=== PATIENT | male | born 1985 | race Caucasian/White ===

== ENCOUNTER 2016-02-13 15:54 | Inpatient (IN) | payer MEDICAID ==
[2016-02-13] MEDS ORDERED: IBUPROFEN 800 MG TABLET PO STA (16:37)
[2016-02-13] MEDS ORDERED: IBUPROFEN 800 MG TABLET PO ONE (16:54)
[2016-02-13] MEDS ORDERED: SODIUM CHLORIDE 0.9% 1,000 ML IV ONE (17:09)
[2016-02-13] MEDS ORDERED: AMPICILLIN/SULBACTAM 3 GM in SODIUM CHLORIDE 0.9% MINIBAG 100 ML IV STA (17:43)
[2016-02-13] MEDS ORDERED: IBUPROFEN 600 MG TABLET PO PRN (19:37)
[2016-02-13] MEDS ORDERED: ONDANSETRON 4 MG/2 ML VIAL IVP PRN (19:37)
[2016-02-13] MEDS ORDERED: ACETAMINOPHEN 325 MG TABLET PO PRN (19:37)
[2016-02-13] MEDS ORDERED: SODIUM CHLORIDE FLUSH 0.9% 10 ML SYRINGE IVP PRN (19:37)
[2016-02-13] MEDS ORDERED: ZOLPIDEM 5 MG TABLET PO PRN (19:37)
[2016-02-13] MEDS ORDERED: BENZONATATE 100 MG CAPSULE PO PRN (19:44)
[2016-02-13] MEDS ORDERED: BENZOCAINE/MENTHOL LOZENGE MM PRN (19:44)
[2016-02-13] MEDS ORDERED: IOPAMIDOL-300 100 ML VIAL IVP ONE (20:07)
[2016-02-13] MEDS: SODIUM CHLORIDE 0.9% 1,000 ML IV SCH (20:31)
[2016-02-13] MEDS: SODIUM CHLORIDE FLUSH 0.9% 10 ML SYRINGE IVP SCH (20:32)
[2016-02-13] MEDS: NICOTINE 14 MG PATCH TOP SCH (20:32)
[2016-02-14] MEDS: AMPICILLIN/SULBACTAM 3 GM in SODIUM CHLORIDE 0.9% MINIBAG 100 ML IV SCH ×4 (00:01→17:16)
[2016-02-14] MEDS: SODIUM CHLORIDE 0.9% 1,000 ML IV SCH ×4 (03:42→22:39)
[2016-02-14] MEDS: HYDROcod/ACETAM 5/325 MG TABLET PO PRN ×3 (03:43→21:09)
[2016-02-14] MEDS: SODIUM CHLORIDE FLUSH 0.9% 10 ML SYRINGE IVP SCH ×3 (07:22→18:52)
[2016-02-14] MEDS: SACCHAROMYCES BOULARDII 250 MG CAPSULE PO SCH ×2 (08:47→17:16)
[2016-02-14] MEDS: ENOXAPARIN 40 MG/0.4 ML SYRINGE SUBQ SCH (08:48)
[2016-02-14] MEDS: POLYETHYLENE GLYCOL 3350 17 GM PACKET PO SCH (08:48)
[2016-02-14] MEDS: NICOTINE 14 MG PATCH TOP SCH (08:49)
[2016-02-15] MEDS: AMPICILLIN/SULBACTAM 3 GM in SODIUM CHLORIDE 0.9% MINIBAG 100 ML IV SCH ×5 (02:00→23:57)
[2016-02-15] MEDS: SODIUM CHLORIDE 0.9% 1,000 ML IV SCH ×3 (02:00→17:53)
[2016-02-15] MEDS: SODIUM CHLORIDE FLUSH 0.9% 10 ML SYRINGE IVP SCH ×3 (05:31→23:33)
[2016-02-15] MEDS ORDERED: MAGNESIUM HYDROXIDE 2,400 MG/30 ML UDC PO ONE (09:14)
[2016-02-15] MEDS: MAGNESIUM OXIDE 400 MG TABLET PO SCH (09:19)
[2016-02-15] MEDS: SACCHAROMYCES BOULARDII 250 MG CAPSULE PO SCH ×2 (09:20→17:44)
[2016-02-15] MEDS: NICOTINE 14 MG PATCH TOP SCH (09:20)
[2016-02-15] MEDS: CALCIUM CARBONATE CHEW 500 MG TABLET PO SCH (09:20)
[2016-02-15] MEDS: ENOXAPARIN 40 MG/0.4 ML SYRINGE SUBQ SCH (09:20)
[2016-02-15] MEDS: POLYETHYLENE GLYCOL 3350 17 GM PACKET PO SCH (09:21)
[2016-02-15] MEDS: HYDROcod/ACETAM 5/325 MG TABLET PO PRN (09:32)
[2016-02-15] MEDS: DOCUSATE SODIUM 250 MG CAPSULE PO SCH (09:33)
[2016-02-15] MEDS: SENNA 8.6 MG TABLET PO SCH (09:33)
[2016-02-16] MEDS: SODIUM CHLORIDE 0.9% 1,000 ML IV SCH ×2 (01:19→08:15)
[2016-02-16] MEDS: SODIUM CHLORIDE FLUSH 0.9% 10 ML SYRINGE IVP SCH (06:48)
[2016-02-16] MEDS: AMPICILLIN/SULBACTAM 3 GM in SODIUM CHLORIDE 0.9% MINIBAG 100 ML IV SCH (06:48)
[2016-02-16] MEDS: SACCHAROMYCES BOULARDII 250 MG CAPSULE PO SCH (08:16)
[2016-02-16] MEDS: MAGNESIUM OXIDE 400 MG TABLET PO SCH (08:16)
[2016-02-16] MEDS ORDERED: AMOX/CLAV 500 MG/125 MG TABLET PO SCH (09:00)
[2016-02-16] MEDS: CALCIUM CARBONATE CHEW 500 MG TABLET PO SCH ×2 (09:52)
[2016-02-16] MEDS: NICOTINE 14 MG PATCH TOP SCH (09:52)
[2016-02-16] MEDS: ENOXAPARIN 40 MG/0.4 ML SYRINGE SUBQ SCH (09:53)
[2016-02-16] MEDS: DOCUSATE SODIUM 250 MG CAPSULE PO SCH (09:53)
[2016-02-16] MEDS: POLYETHYLENE GLYCOL 3350 17 GM PACKET PO SCH (09:54)
[2016-02-16] MEDS: SENNA 8.6 MG TABLET PO SCH (09:54)
== END 2016-02-16 13:45 | disposition home or self-care (01) | DRG 157 ==
DX: K04.7 Periapical abscess without sinus (principal); J18.9 Pneumonia, unspecified organism; Q89.8 Other specified congenital malformations; K05.00 Acute gingivitis, plaque induced; K02.9 Dental caries, unspecified; K00.4 Disturbances in tooth formation; F17.210 Nicotine dependence, cigarettes, uncomplicated; F12.90 Cannabis use, unspecified, uncomplicated; Z59.0 Homelessness; Z87.74 Personal history of (corrected) congenital malformations of heart and circulatory system

== ENCOUNTER 2016-05-02 14:26 | Outpatient (CLI) | payer MEDICAID | END 2016-05-02 14:27 | disposition critical access hospital (66) | DX: R10.9 Unspecified abdominal pain (principal) | CPT/HCPCS: A0425; A0429 ==

== ENCOUNTER 2016-05-02 14:43 | Emergency (ER) | payer MEDICAID ==
[2016-05-02] MEDS ORDERED: SODIUM CHLORIDE 0.9% 1,000 ML IV ONE ×2 (14:49)
[2016-05-02] MEDS ORDERED: KETOROLAC 60 MG/2 ML VIAL IVP STA (14:49)
[2016-05-02] MEDS ORDERED: ONDANSETRON 4 MG/2 ML VIAL IVP STA (14:49)
[2016-05-02] MEDS ORDERED: ONDANSETRON 4 MG/2 ML VIAL ONE (15:03)
[2016-05-02] MEDS ORDERED: KETOROLAC 30 MG/ML VIAL ONE (15:03)
== END 2016-05-02 17:14 | disposition home or self-care (01) ==
DX: K62.89 Other specified diseases of anus and rectum (principal); K59.00 Constipation, unspecified; N20.0 Calculus of kidney; R03.0 Elevated blood-pressure reading, without diagnosis of hypertension; Z87.442 Personal history of urinary calculi; F17.200 Nicotine dependence, unspecified, uncomplicated

== ENCOUNTER 2016-05-21 15:54 | Outpatient (CLI) | payer MEDICAID | END 2016-05-21 15:55 | disposition critical access hospital (66) | DX: N50.811 Right testicular pain (principal) | CPT/HCPCS: A0425; A0427 ==

== ENCOUNTER 2016-05-21 16:13 | Emergency (ER) | payer MEDICAID ==
[2016-05-21] MEDS ORDERED: KETOROLAC 60 MG/2 ML VIAL IVP STA (16:20)
[2016-05-21] MEDS ORDERED: KETOROLAC 30 MG/ML VIAL ONE (16:23)
[2016-05-21] MEDS ORDERED: cefTRIAXone 250 MG VIAL IM STA (18:57)
[2016-05-21] MEDS ORDERED: DOXYCYCLINE 100 MG TABLET PO STA (18:57)
[2016-05-21] MEDS ORDERED: DOXYCYCLINE 100 MG TABLET PO ONE (19:02)
[2016-05-21] MEDS ORDERED: LIDOCAINE 1% 2 ML VIAL ONE (19:02)
[2016-05-21] MEDS ORDERED: cefTRIAXone 250 MG VIAL ONE (19:02)
== END 2016-05-21 19:13 | disposition home or self-care (01) ==
DX: N45.1 Epididymitis (principal); N43.3 Hydrocele, unspecified; I86.1 Scrotal varices; R31.9 Hematuria, unspecified; Z87.442 Personal history of urinary calculi; Z87.891 Personal history of nicotine dependence
CPT/HCPCS: 76870; 81001; 87491; 87591; 93975; 96372; 96374; 99284; A9270

== ENCOUNTER 2016-05-26 06:22 | Outpatient (CLI) | payer MEDICAID | END 2016-05-26 06:23 | disposition home or self-care (01) | DX: N45.1 Epididymitis (principal) ==

== ENCOUNTER 2016-12-30 13:25 | Emergency (ER) | payer MEDICAID ==
--- NOTE | 2016-12-30 14:05 | ED Physician Documentation ---
PD HPI CHEST PAIN - Stated complaint Stated Complaint: SOA/CHEST PX - Chief complaint Chief Complaint: General - History obtained from History obtained from: Patient - History of Present Illness Timing - onset: Last night Timing - onset during: Light activity Timing - duration: Hours Timing - details: Abrupt onset, Now resolved Pain level max: 4 Pain level now: 0 Quality: Pressure Location: Substernal Radiation: No: Jaw, Neck, Back, Abdominal, Left upper extremity, Right upper extremity Improved by: Rest Associated symptoms: Shortness of air Similar symptoms before: Has not had sx before Recently seen: Clinic - Additional information Additional information: 31-year-old male with a history of tetralogy of flow status post repair has had some teeth pulled last week. He was on some oxycodone for this and stopped this yesterday afternoon. Last night he was walking and developed acute substernal chest pain without radiation without diaphoresis but with some shortness of breath. He has now had resolution of this pain and he is come to the emergency department with concern. Review of Systems Constitutional: reports: Fatigue. denies: Fever, Myalgias Eyes: denies: Decreased vision Ears: denies: Ear pain Nose: denies: Congestion Throat: denies: Sore throat Cardiac: reports: Chest pain / pressure. denies: Palpitations, Pedal edema, Calf pain Respiratory: reports: Dyspnea. denies: Cough GI: denies: Abdominal Pain, Nausea, Vomiting : reports: Dysuria. denies: Frequency Skin: denies: Rash PD PAST MEDICAL HISTORY - Past Medical History Cardiovascular: Murmur, Other Respiratory: Shortness of breath Neuro: None Endocrine/Autoimmune: None GI: None : Kidney stones HEENT: None Psych: Depression, ADD/ADHD Musculoskeletal: None Derm: None - Past Surgical History Past Surgical History: Yes Cardiovascular: Other - Present Medications Home Medications: Ambulatory Orders Medication Instructions Recorded Confirmed Doxycycline Hyclate 100 mg PO BID #20 capsule 12/30/16 Trazodone HCl 3 tab DAILY 12/30/16 12/30/16 buPROPion [Wellbutrin Sr] 1 tab BID 12/30/16 12/30/16 - Allergies Allergies/Adverse Reactions: Allergies Allergy/AdvReac Type Severity Reaction Status Date / Time codeine [Codeine] AdvReac Mild Itching Verified 12/30/16 13:39 - Social History Does the pt smoke?: Yes Smoking Status: Current every day smoker Does the pt drink ETOH?: Yes Does the pt have substance abuse?: Yes - Immunizations Immunizations are current?: No Immunizations: TDAP >10years/unknown - POLST Patient has POLST: No PD ED PE NORMAL - Vitals Vital signs reviewed: Yes (hypertensive ) - General General: Alert and oriented X 3, No acute distress, Well developed/nourished - HEENT HEENT: Atraumatic, PERRL, EOMI, Other (teeth are gone from the right upper and sutures are present and therer is no evidence of inflamation ) - Neck Neck: Supple, no meningeal sign, No bony TTP - Cardiac Cardiac: RRR, Other (2/6 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 at [facility]) - Respiratory Respiratory: No respiratory distress, Clear bilaterally - Abdomen Abdomen: Soft, Non tender - Back Back: No CVA TTP, No spinal TTP - Derm Derm: Normal color, Warm and dry, No rash - Extremities Extremities: No deformity, No edema - Neuro Neuro: No motor deficit, No sensory deficit Eye Opening: Spontaneous Motor: Obeys Commands Verbal: Oriented GCS Score: 15 - Psych Psych: Normal mood, Normal affect Results - Vitals Vitals: Vital Signs - 24 hr 12/30/16 12/30/16 13:32 17:35 Temperature 36.9 C Heart Rate 72 80 Respiratory 20 16 Rate Blood Pressure 130/86 H O2 Saturation 100 Oxygen O2 Source Room air - EKG (time done) 12-30-16 Rate: Rate (enter#) (63) Rhythm: NSR [place]: LAD Intervals: RBBB Ischemia: ST elevation c/w ischemia, Q waves Compare to prior EKG: Old EKG unavailable Computer interpretation: Agree with computer - Labs Labs: Laboratory Tests 12/30/16 12/30/16 12/30/16 14:33 14:33 14:33 WBC 6.5 RBC 4.67 L Hgb 14.9 Hct 43.3 MCV 92.7 MCH 31.9 H MCHC 34.4 RDW 13.1 Plt Count 143 MPV 9.8 Neut # 3.9 Lymph # 1.9 [place] # 0.6 Eos # 0.1 Baso # 0.1 Absolute Nucleated RBC 0.00 Nucleated RBC % 0.0 Sodium 137 Potassium 3.9 Chloride 99 L Carbon Dioxide 24 Anion Gap 14.0 H BUN 15 Creatinine 1.2 Estimated GFR (MDRD) 70 L Glucose 82 Calcium 9.6 Total Bilirubin 1.2 H AST 23 ALT 15 Alkaline Phosphatase 57 Troponin I < 0.04 Total Protein 8.6 H Albumin 4.5 Globulin 4.1 Albumin/Globulin Ratio 1.1 Lipase 21 L Urine Color Urine Clarity Urine pH Ur Specific [place] Urine Protein Urine Glucose (UA) Urine Ketones Urine Occult Blood Urine Nitrite Urine Bilirubin Urine Urobilinogen Ur Leukocyte Esterase Urine RBC Urine WBC Ur Squamous Epith Cells Amorphous Sediment Urine Bacteria Ur Microscopic Review Urine Culture Comments 12/30/16 17:10 WBC RBC Hgb Hct MCV MCH MCHC RDW Plt Count MPV Neut # Lymph # [place] # Eos # Baso # Absolute Nucleated RBC Nucleated RBC % Sodium Potassium Chloride Carbon Dioxide Anion Gap BUN Creatinine Estimated GFR (MDRD) Glucose Calcium Total Bilirubin AST ALT Alkaline Phosphatase Troponin I Total Protein Albumin Globulin Albumin/Globulin Ratio Lipase Urine Color YELLOW Urine Clarity CLEAR Urine pH 8.5 H Ur Specific [place] 1.015 Urine Protein NEGATIVE Urine Glucose (UA) NEGATIVE Urine Ketones 40 H Urine Occult Blood LARGE H Urine Nitrite NEGATIVE Urine Bilirubin NEGATIVE Urine Urobilinogen 4 H Ur Leukocyte Esterase NEGATIVE Urine RBC TNTC H Urine WBC 11-25 H Ur Squamous Epith Cells RARE Squamous Amorphous Sediment Rare Urine Bacteria None Seen Ur Microscopic Review INDICATED Urine Culture Comments INDICATED Procedures - IVC sono (time) 1400 Bedside IVC sono: IVC measures (cm) (2.14), IVC collapsed c insp (cm) (1.42), Euvolemia PD MEDICAL DECISION MAKING - ED course Complexity details: reviewed results, re-evaluated patient, considered differential, d/w patient ED course: 31-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 This is resolved today and on examination his chest is clear on x-ray and troponin is negative the electrocardiogram shows significant abnormality secondary to the tetrology. I do not suspect CAD, but I am concerned about a spike in blood pressure after stopping his oxycodone. His symptoms of chest pain and soa are resolved this afternoon and were only present last night. He does have a history of UTI that appears not to have been treated earlier this year and on exam of the urine today it appears he has infection. He is given rocephin IM and we will place him on some doxy. He was given a duo-neb treatment in the ED without much change. Departure - Departure Disposition: 01 Home, Self Care Clinical Impression: History of tetralogy of Fallot repair, Atypical chest pain Urinary tract infection Qualifiers: Urinary tract infection type: acute cystitis Hematuria presence: with hematuria Qualified Code(s): N30.01 - Acute cystitis with hematuria Instructions: ED UTI Cystitis Male, ED Chest Pain Atypical Unkn Cause Follow-Up: [facility] [Provider Group] Prescriptions: Doxycycline Hyclate 100 mg PO BID #20 capsule
--- NOTE | 2016-12-30 14:25 | XRAY Preliminary Report ---
Exam: XR CHEST 2 VIEW PA/LAT IMPRESSION: 1. Remote sternotomy. 2. Stable, otherwise unremarkable exam. [facility] SITE ID: [id number]
--- NOTE | 2016-12-30 14:33 | XRAY Report ---
EXAM: CHEST RADIOGRAPHY EXAM DATE: 12/30/2016 02:13 PM. CLINICAL HISTORY: Shortness of breath. Chest pain. COMPARISON: None. TECHNIQUE: 2 views. FINDINGS: Lungs/Pleura: No focal opacities evident. No pleural effusion. No pneumothorax. Normal volumes. Mediastinum: Heart and mediastinal contours are unremarkable. Remote sternotomy. Other: Old mild wedging mid third of the mildly kyphotic thoracic spine. IMPRESSION: 1. Remote sternotomy. 2. Stable, otherwise unremarkable exam. [facility] Referring Provider Line: [phone] SITE ID: [id number]
[2016-12-30 14:40] LABS: BASOPHILS # (AUTO) 0.1 10^3/uL (0.0-0.1); BASOPHILS % (AUTO) 0.9 %; EOSINOPHILS # (AUTO) 0.1 10^3/uL (0.0-0.7); EOSINOPHILS % (AUTO) 1.4 %; HCT - HEMATOCRIT 43.3 % (42.0-52.0); HGB - HEMOGLOBIN 14.9 g/dL (14.0-18.0); LYMPHOCYTES # (AUTO) 1.9 10^3/uL (1.5-3.5); LYMPHOCYTES % (AUTO) 28.5 %; MEAN CORPUSCULAR HEMOGLOBIN 31.9 pg (27.0-31.0); MEAN CORPUSCULAR HGB CONC 34.4 g/dL (32.0-36.0); MEAN CORPUSCULAR VOLUME 92.7 fL (80.0-94.0); MEAN PLATELET VOLUME 9.8 fL (7.4-11.4); MONOCYTES # (AUTO) 0.6 10^3/uL (0.0-1.0); MONOCYTES % (AUTO) 8.9 %; NEUTROPHILS # (AUTO) 3.9 10^3/uL (1.5-6.6); NEUTROPHILS % (AUTO) 60.3 %; RED BLOOD COUNT 4.67 10^6/uL (4.70-6.10); RED CELL DISTRIBUTION WIDTH 13.1 % (12.0-15.0); UNCORRECTED WHITE BLOOD COUNT 6.5 x10^3/uL; WHITE BLOOD COUNT 6.5 x10^3/uL (4.8-10.8)
[2016-12-30 14:55] LABS: ALBUMIN/GLOBULIN RATIO 1.1 (1.0-2.2); BILIRUBIN,TOTAL 1.2 mg/dL (0.2-1.0); CALCIUM 9.6 mg/dL (8.5-10.3); CREATININE 1.2 mg/dL (0.6-1.2); POTASSIUM 3.9 mmol/L (3.5-5.0); TOTAL PROTEIN 8.6 g/dL (6.7-8.2)
[2016-12-30 17:19] LABS: BILIRUBIN,URINE NEGATIVE (NEGATIVE); PH,URINE 8.5 PH (5.0-7.5)
[2016-12-30 17:23] LABS: UA w/ MICROSCOPIC CHARGE YES
[2016-12-30] MEDS ORDERED: IPRATROPIUM/ALBUTEROL 3 ML NEB INH ONE (17:31)
[2016-12-30] MEDS: IPRATROPIUM/ALBUTEROL 3 ML NEB INH STA (17:35)
[2016-12-30 17:42] LABS: UR CULTURE IF IND INDICATED
[2016-12-30] MEDS ORDERED: cefTRIAXone 1 GM VIAL ONE (18:33)
[2016-12-30] MEDS: cefTRIAXone 1 GM VIAL IM STA (18:33)
[2016-12-30] MEDS ORDERED: LIDOCAINE 1% 2 ML VIAL ONE (18:34)
[2016-12-30 18:40] VITALS: BP 104/75
== END 2016-12-30 18:45 | disposition home or self-care (01) ==
LOC: ED 13:25
DX: R07.89 Other chest pain (principal); N30.01 Acute cystitis with hematuria; I45.2 Bifascicular block; F17.200 Nicotine dependence, unspecified, uncomplicated; Z87.74 Personal history of (corrected) congenital malformations of heart and circulatory system
CPT/HCPCS: 36415; 71020; 80053; 81001; 81003; 83690; 84484; 85025; 87086; 93005; 94640; 96372; 99283; 99284

== ENCOUNTER 2017-05-27 09:27 | Outpatient (CLI) | payer MEDICAID ==
[2017-05-27 12:47] LABS: BASOPHILS # (AUTO) 0.1 10^3/uL (0.0-0.1); BASOPHILS % (AUTO) 0.5 %; EOSINOPHILS # (AUTO) 0.1 10^3/uL (0.0-0.7); EOSINOPHILS % (AUTO) 1.1 %; HGB - HEMOGLOBIN 13.8 g/dL (14.0-18.0); LYMPHOCYTES # (AUTO) 3.6 10^3/uL (1.5-3.5); MEAN CORPUSCULAR HGB CONC 33.9 g/dL (32.0-36.0); MEAN CORPUSCULAR VOLUME 91.5 fL (80.0-94.0); MEAN PLATELET VOLUME 11.3 fL (7.4-11.4); MONOCYTES # (AUTO) 0.9 10^3/uL (0.0-1.0); MONOCYTES % (AUTO) 7.8 %; NEUTROPHILS # (AUTO) 7.3 10^3/uL (1.5-6.6); NEUTROPHILS % (AUTO) 60.6 %; PLT - PLATELET COUNT 148 10^3/uL (130-450); RED BLOOD COUNT 4.45 10^6/uL (4.70-6.10); RED CELL DISTRIBUTION WIDTH 13.2 % (12.0-15.0); WHITE BLOOD COUNT 12.1 x10^3/uL (4.8-10.8)
[2017-05-27 13:11] LABS: ALBUMIN 4.5 g/dL (3.2-5.5); ALBUMIN/GLOBULIN RATIO 1.2 (1.0-2.2); ALKALINE PHOSPHATASE 66 IU/L (42-121); ALT ALANINE AMINOTRANSFERASE 15 IU/L (10-60); AST ASPARTATE AMINOTRANSFERASE 27 IU/L (10-42); BILIRUBIN,TOTAL 0.3 mg/dL (0.2-1.0); BUN - BLOOD UREA NITROGEN 11 mg/dL (6-20); CALCIUM 8.7 mg/dL (8.5-10.3); CARBON DIOXIDE - CO2 25 mmol/L (21-32); CHLORIDE 104 mmol/L (101-111); CHOL/HDL RATIO 4.9 (<5.0); CHOLESTEROL 219 mg/dL; GFR - MDRD 87 (>89); GLUCOSE 86 mg/dL (70-100); HDL CHOLESTEROL 45 mg/dL; LDL CHOLESTEROL,CALCULATED 114 mg/dL; LDL/HDL RATIO 2.5 (<3.6); SODIUM 137 mmol/L (135-145); TOTAL PROTEIN 8.2 g/dL (6.7-8.2); VLDL CHOLESTEROL 60 mg/dL
== END 2017-05-27 09:28 | disposition home or self-care (01) ==
LOC: LAB.N 09:27
PROVIDERS: ATTEND Nurse Practitioner Gerontology
DX: Z13.9 Encounter for screening, unspecified (principal)
CPT/HCPCS: 36415; 80053; 80061; 83721; 84443; 85025

== ENCOUNTER 2017-07-24 13:27 | Outpatient (CLI) | payer MEDICAID | END 2017-07-24 13:28 | disposition critical access hospital (66) | LOC: EMS 13:27 | PROVIDERS: ATTEND Surgery | DX: S01.112A Laceration without foreign body of left eyelid and periocular area, initial encounter (principal); W50.0XXA Accidental hit or strike by another person, initial encounter; Y93.72 Activity, wrestling; Y92.481 Parking lot as the place of occurrence of the external cause | CPT/HCPCS: A0425; A0429 ==

== ENCOUNTER 2017-07-24 13:49 | Emergency (ER) | payer MEDICAID ==
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
[2017-07-24] MEDS ORDERED: IBUPROFEN 600 MG TABLET PO STA (14:16)
[2017-07-24] MEDS ORDERED: LIDOCAINE-EPINEPH-TETRACAINE 3 ML SYRINGE TOP STA (14:16)
[2017-07-24] MEDS ORDERED: ACETAMINOPHEN 325 MG TABLET PO STA (14:16)
--- NOTE | 2017-07-24 15:29 | CT Preliminary Report ---
Exam: CT ORBITS W/O Impression: Acute, blowout type fracture, medial wall left orbit. There is herniation of intraorbital fat through the bone defect. In addition, there is prolapse of the medial rectus muscle into the defect and the muscle shows significant swelling (new compared to the study from 02/13/2016, closing. And may be imp ingement of the medial rectus the posterior margin of the fracture. Clinical correlation applies. No other acute facial bone fracture is demonstrated. No intraorbital hematoma SITE ID: [id number]
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
[2017-07-24] MEDS ORDERED: cephALEXin 250 MG CAPSULE PO STA (17:05)
[2017-07-24 17:42] VITALS: BP 138/88
== END 2017-07-24 17:39 | disposition home or self-care (01) ==
LOC: EDUNIT# → ED 13:49
DX: S01.112A Laceration without foreign body of left eyelid and periocular area, initial encounter (principal); S00.83XA Contusion of other part of head, initial encounter; S02.82XA Fracture of other specified skull and facial bones, left side, initial encounter for closed fracture; W50.0XXA Accidental hit or strike by another person, initial encounter; Y93.83 Activity, rough housing and horseplay; Y92.009 Unspecified place in unspecified non-institutional (private) residence as the place of occurrence of the external cause; F17.200 Nicotine dependence, unspecified, uncomplicated
CPT/HCPCS: 12011; 70480; 99283; A9270

== ENCOUNTER 2017-08-06 18:46 | Outpatient (CLI) | payer MEDICAID | END 2017-08-06 18:47 | disposition critical access hospital (66) | LOC: EMS 18:46 | PROVIDERS: ATTEND Surgery | DX: H53.9 Unspecified visual disturbance (principal) | CPT/HCPCS: A0425; A0429 ==

== ENCOUNTER 2017-08-06 19:07 | Emergency (ER) | payer MEDICAID ==
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
[2017-08-06 20:44] VITALS: BP 146/99
== END 2017-08-06 21:38 | disposition short-term general hospital (02) ==
LOC: EDUNIT# → ED 19:07
DX: H35.89 Other specified retinal disorders (principal); H43.9 Unspecified disorder of vitreous body; F17.200 Nicotine dependence, unspecified, uncomplicated
CPT/HCPCS: 99282; 99283

== ENCOUNTER 2017-08-06 21:42 | Outpatient (CLI) | payer MEDICAID | END 2017-08-06 21:43 | disposition short-term general hospital (02) | LOC: EMS 21:42 | PROVIDERS: ATTEND Surgery | DX: H53.9 Unspecified visual disturbance (principal) | CPT/HCPCS: A0170; A0425; A0428 ==

== ENCOUNTER 2017-10-06 04:39 | Emergency (ER) | payer MEDICAID ==
[2017-10-06] MEDS ORDERED: PENICILLIN VK 250 MG TABLET PO STA (04:53)
[2017-10-06] MEDS ORDERED: IBUPROFEN 600 MG TABLET PO STA (04:53)
[2017-10-06] MEDS ORDERED: BUPIVACAINE 0.5% PF 10 ML VIAL SUBQ STA (04:53)
--- NOTE | 2017-10-06 04:56 | ED Physician Documentation ---
PD HPI HEENT - Stated complaint Stated Complaint: DENTAL PAIN - Chief complaint Chief Complaint: Heent - History obtained from History obtained from: Patient - History of Present Illness Timing - onset: Yesterday Timing - duration: Days Timing - details: Gradual onset, Still present Location: Tooth, Mouth Associated symptoms: No: Fever Similar symptoms before: Work up / diagnostics Recently seen: Not recently seen - Additional information Additional information: patient is a 32 year old male presenting to the emergency department for dental pain. patient states that it started last week and then it got better for a few days before returning again. Patient states that again early this morning the pain came back and was very severe. Patient has very poor dentition with virtually no teeth and states that he has had chronic dental problems. Patient reports that he is going to call the dental office today but he could not wait. Review of Systems Ten Systems: 10 systems reviewed and negative Constitutional: denies: Fever, Chills Throat: reports: Dental pain / toothache PD PAST MEDICAL HISTORY - Past Medical History Past Medical History: Yes Cardiovascular: Murmur, Other Respiratory: Shortness of breath Endocrine/Autoimmune: None GI: None : Kidney stones HEENT: None Psych: Depression, ADD/ADHD Musculoskeletal: None Derm: None - Past Surgical History Past Surgical History: Yes Cardiovascular: Other - Present Medications Home Medications: Ambulatory Orders Medication Instructions Recorded Confirmed buPROPion [Wellbutrin Sr] 1 tab BID 12/30/16 12/30/16 QUEtiapine [SEROquel] mg PO ONCE 08/06/17 Chlorhexidine Gluconate 15 ml MM Q6HR #1 mouthwash 10/06/17 Penicillin V Potassium 500 mg PO Q6HR 10 Days tablet 10/06/17 - Allergies Allergies/Adverse Reactions: Allergies Allergy/AdvReac Type Severity Reaction Status Date / Time codeine [Codeine] AdvReac Mild Itching Verified 10/06/17 04:48 - Social History Does the pt smoke?: Yes Smoking Status: Current every day smoker Does the pt drink ETOH?: Yes Does the pt have substance abuse?: Yes - Immunizations Immunizations are current?: No Immunizations: TDAP >10years/unknown - POLST Patient has POLST: No PD ED PE NORMAL - Vitals Vital signs reviewed: Yes - General General: Alert and oriented X 3 - HEENT HEENT: Atraumatic - Cardiac Cardiac: RRR - Respiratory Respiratory: No respiratory distress - Derm Derm: Normal color - Extremities Extremities: No deformity PD ED PE EXPANDED - General General: Alert, In Pain - HEENT HEENT: Dental decay (extensive dental caries, no solid unaffected teeth), Dental TTP (no drainable abscess or fluid collection) Results - Vitals Vitals: Vital Signs - 24 hr 10/06/17 04:42 Temperature 36.4 C L Heart Rate 99 Respiratory 18 Rate Blood Pressure 157/77 H O2 Saturation 100 Oxygen O2 Source Room air Procedures - Regional nerve block Nerve block site: Inferior alveolar Right / left: Right Nerve block anesthesia: Marcaine 0.5% Nerve block aftercare: Excellent anesthesia, Patient tolerated well PD MEDICAL DECISION MAKING - ED course Complexity details: reviewed old records, re-evaluated patient, considered differential, d/w patient ED course: Patient was seen and examined at bedside. inferior alveolar nerve block was performed with good relief. patient was treated with ibuprofen and pen vk. there was no drainable abscess or fluid collection. patient required no further work up and was stable for discharge with outpatient follow up. - Sepsis Event Vital Signs: Vital Signs - 24 hr 10/06/17 04:42 Temperature 36.4 C L Heart Rate 99 Respiratory 18 Rate Blood Pressure 157/77 H O2 Saturation 100 Oxygen O2 Source Room air Departure - Departure Disposition: 01 Home, Self Care Clinical Impression: Pain due to dental caries Condition: Good Instructions: ED Tooth Pain Follow-Up: goran bach [Other] Prescriptions: Chlorhexidine Gluconate 15 ml MM Q6HR #1 mouthwash Penicillin V Potassium 500 mg PO Q6HR 10 Days tablet Comments: Your symptoms today are being caused by multiple dental caries. The only way to solve the issue is to follow up with a dentist. In the meantime you will be started on an antibiotic mouthwash and antibiotics. You can take motrin or tylenol as needed for pain.
[2017-10-06 05:17] VITALS: BP 130/68
== END 2017-10-06 05:15 | disposition home or self-care (01) ==
LOC: ED 04:39
DX: K02.9 Dental caries, unspecified (principal); F17.200 Nicotine dependence, unspecified, uncomplicated
CPT/HCPCS: 64450; 99283; A9270